=== PATIENT | male | born 1965 | race Caucasian/White ===

== ENCOUNTER 2018-03-20 13:39 | Outpatient (CLI) | payer BC ==
[~2018-03-20] VITALS: Ht 167.6 cm; Wt 97.5 kg
[~2018-03-20 13:39] MED LIST: DOXY100C2 PO; NAPR500T8 PO
== END 2018-03-20 13:49 | disposition home or self-care (01) ==
LOC: PREOP 13:39
PROVIDERS: ATTEND Surgery
DX: Z01.818 Encounter for other preprocedural examination (principal)

== ENCOUNTER 2018-03-26 07:29 | Day surgery (SDC) | payer BC ==
[~2018-03-26] VITALS: Ht 167.6 cm; Wt 97.5 kg
[2018-03-26] MEDS ORDERED: NS IV 500 ML 500 ML ONE (07:39)
[2018-03-26 07:51] VITALS: BP 121/80
[2018-03-26] MEDS ORDERED: NS IV 500 ML 500 ML IV PRN (07:54)
[2018-03-26] MEDS ORDERED: MIDAZOLAM 2 MG/2 ML (VERSED) VIAL IVP ONE (08:00)
[2018-03-26] MEDS ORDERED: fentaNYL INJECTION 100 MCG/2 ML AMP IVP ONE (08:00)
[2018-03-26] MEDS ORDERED: MIDAZOLAM 2 MG/2 ML (VERSED) VIAL ONE ×4 (08:45)
[2018-03-26] MEDS ORDERED: fentaNYL INJECTION 100 MCG/2 ML AMP ONE (08:45)
--- NOTE | 2018-03-26 08:46 | History & Physicial ---
History of Present Illness History of Present Illness Reason for visit/HPI to undergo screening colonoscopy. No family history of colon cancer or polyps. Date of Admission 03/26/18 Date Seen by a Provider: Mar 26, 2018 Time Seen by a Provider: 08:44 I consulted on this patient on 03/26/18 08:44 Attending Physician Rebecca Donato MD Admitting Physician Cristian Griffith MD Consult Allergies and Home Medications Allergies Coded Allergies: Cephalexin (Unverified Allergy, Intermediate, RASH, 10/14/11) Codeine (Unverified Allergy, Mild, 02/27/09) Penicillins (Unverified Allergy, Mild, RASH,SOB, 02/27/09) morphine (Unverified Allergy, EDEMA, 10/14/11) Home Medications Naproxen 500 Mg Tablet.dr, 500 MG PO BID, (Reported) Patient Home Medication List Home Medication List Reviewed: Yes Past Pgfgcyt-Lylqol-Bckuiu Hx Patient Social History Marrital Status: Employed/Student: employed Alcohol Use: Denies Use Recreational Drug Use: No Smoking Status: Never a Smoker Recent Foreign Travel: No Contact w/other who traveled: No Recent Hopitalizations: No Recent Infectious Disease Expo: No Immunizations Up To Date Date of Influenza Vaccine: Feb 05, 2018 Seasonal Allergies Seasonal Allergies: Yes Surgeries No Respiratory No Cardiovascular No Neurological No Reproductive System Hx Reproductive Disorders: No Sexually Transmitted Disease: No Gastrointestinal No Musculoskeletal Yes Arthritis Endocrine History of Endocrine Disorders: No Review of Systems Constitutional: no symptoms reported EENTM: no symptoms reported Respiratory: no symptoms reported Cardiovascular: no symptoms reported Gastrointestinal: no symptoms reported Genitourinary: no symptoms reported Musculoskeletal: joint pain Skin: no symptoms reported Psychiatric/Neurological: No Symptoms Reported Physical Exam Vital Signs Vital Signs - First Documented 03/26/18 07:51 Temp 97.7 Pulse 60 Resp 16 B/P (MAP) 121/80 (94) Pulse Ox 95 O2 Delivery Room Air Capillary Refill : Height, Weight, BMI Height: 5'6.00" Weight: 215lbs. 0.0oz. 97.595273qy; 34.7 BMI Method:Stated General Appearance: No Apparent Distress Neck: Normal Inspection Respiratory: Lungs Clear Cardiovascular: Regular Rate, Rhythm Gastrointestinal: Non Tender, Soft Rectal: Deferred Extremity: Normal Inspection Neurologic/Psychiatric: Alert, Oriented x3 Skin: Warm/Dry Assessment/Plan Assessment and Plan gentleman to undergo screening colonoscopy. Discussed in detail. Admission Diagnosis Admission Status: Other (Outpt Proc) REBECCA DONATO MD Mar 26, 2018 08:46
--- NOTE | 2018-03-26 08:46 | Conscious Sedation/ASA ---
Conscious Sedation Pre-Proced Time 08:46 ASA Score 2 For ASA 3 and 4: Consider anesthesia and medical clearance. Also, for patients with a history of failed moderate sedation consider anesthesia. Airway Lungs Heart ASA score ASA 1: a normal healthy patient ASA 2: a patient with a mild systemic disease (mid diabetes, controlled hypertension, obesity ASA 3: a patient with a severe systemic disease that limits activity (angina , COPD, prior Myocardial infarction) ASA 4: a patient with an incapacitating disease that is a constant threat to life (CHF, renal failure) ASA 5: a moribund patient not expected to survive 24 hrs. (ruptured aneurysm) ASA 6: a declared brain patient whose organs are being harvested. For emergent operations, add the letter E after the classification Mallampati Classification Grade 2 Sedation Plan Discussed options with patient/fam The patient is an appropriate candidate to undergo the planned procedure, sedation, and anesthesia. The patient immediately re-assessed prior to indication. REBECCA DONATO MD Mar 26, 2018 08:46
--- NOTE | 2018-03-26 09:15 | Endo Procedure Record ---
Endo Procedure Report Date of Procedure Last Colonoscopy: No Mar 26, 2018 Surgeon (s) REBECCA DONATO MD Post Procedure/Op Diagnosis sigmoid diverticulosis Procedure Performed colonoscopy to cecum Description of Procedure Anesthesia Type: Conscious Sedation Specimen(s) collected/removed none Description of the Procedure Indication for the procedure: This gentleman came in for screening colonoscopy. He denied any relevant family history. Informed consent was obtained after reviewing the procedure in detail. Description of procedure: He was placed in left lateral decubitus position and his vital signs were monitored. Conscious sedation was achieved using Versed and fentanyl. Digital rectal examination was unremarkable. The colonoscope was then introduced into the rectum and advanced all the way up to the cecum. It was then pulled back and the mucosa examined in a systematic fashion. Findings: Sigmoid diverticulosis without any inflammation. He tolerated the procedure well and was taken back to the nursing area in a stable condition. Impression: Screening colonoscopy. No polyps. No family history. Recommend repeating in 10 years. Copy Copies To 1: SHANKAR OSWALD MD, XAVIER M MD Mar 26, 2018 09:15
--- NOTE | 2018-03-26 09:16 | Discharge Inst-Simple/Standard ---
Discharge Inst-Standard Discharge Medications New, Converted or Re-Newed RX: Other Patient Instructions/Follow Up Plan of Care/Instructions/FU: repeat colonoscopy in 10 years Activity as Tolerated: Yes Discharge Diet: No Restrictions REBECCA DONATO MD Mar 26, 2018 09:16
[2018-03-26 09:40] VITALS: BP 101/64
[2018-03-26 10:10] VITALS: BP 109/73
[2018-03-26 10:28] VITALS: BP 109/73
== END 2018-03-26 10:28 | disposition home or self-care (01) ==
LOC: ENDO 07:29
PROVIDERS: ATTEND Surgery
DX: Z12.11 Encounter for screening for malignant neoplasm of colon (principal); K57.30 Diverticulosis of large intestine without perforation or abscess without bleeding; Z79.899 Other long term (current) drug therapy; Z88.5 Allergy status to narcotic agent; Z88.1 Allergy status to other antibiotic agents; Z88.0 Allergy status to penicillin

== ENCOUNTER 2019-08-14 20:12 | Emergency (ER) | payer BC ==
[~2019-08-14] VITALS: Ht 167 cm; Wt 92.7 kg
[2019-08-14] MEDS ORDERED: LIDOCAINE 1% INJ 20 ML 20 ML VIAL INJ ONE (20:30)
[2019-08-14] MEDS ORDERED: TETANUS,DIPTH,PERTUSS P/F (BOOSTRIX) 0.5 ML VIAL IM ONE (20:30)
[2019-08-14] MEDS ORDERED: metroNIDAZOLE 500 MG (FLAGYL) TAB PO ONE (20:30)
[2019-08-14] MEDS ORDERED: DOXYCYCLINE 100 MG (VIBRAMYCIN) TABLET PO SCH (20:30)
[2019-08-14] MEDS ORDERED: RX-HYDROCODONE/APAP 5/325 MG #4 TAB PK PO PRN (20:30)
--- NOTE | 2019-08-14 20:34 | ED Upper Extremity ---
General Chief Complaint: Bite-Animal/Human/Insect Stated Complaint: LT HAND LACERATION Nursing Triage Note: Pt to ED with bite to L wrist from family dog. Pt uncertain of last tetanus shot. Nursing Sepsis Screen: No Definite Risk Source: patient Exam Limitations: no limitations History of Present Illness Date Seen by Provider: Aug 14, 2019 Time Seen by Provider: 20:32 Initial Comments Dogbite left wrist just prior to arrival. This was a family dog that is up-to-date on rabies vaccine. He himself is not up-to-date on tetanus vaccine however. Onset: this evening Severity: moderate Pain/Injury Location: left wrist Method of Injury: unknown Modifying Factors: Worse With Movement Allergies and Home Medications Allergies Coded Allergies: Cephalexin (Unverified Allergy, Intermediate, RASH, 10/14/11) Codeine (Unverified Allergy, Mild, 02/27/09) Penicillins (Unverified Allergy, Mild, RASH,SOB, 02/27/09) morphine (Unverified Allergy, EDEMA, 10/14/11) Home Medications Doxycycline Hyclate 100 Mg Tablet, 100 MG PO BID Prescribed by: HOSSEIN NELSON on 08/14/192038 Metronidazole 500 Mg Tablet, 500 MG PO BID Prescribed by: HOSSEIN NELSON on 08/14/192038 Naproxen 500 Mg Tablet.dr, 500 MG PO BID, (Reported) Patient Home Medication List Home Medication List Reviewed: Yes Review of Systems Constitutional: see HPI EENTM: see HPI Respiratory: no symptoms reported Cardiovascular: no symptoms reported Genitourinary: no symptoms reported Musculoskeletal: no symptoms reported Skin: no symptoms reported Psychiatric/Neurological: No Symptoms Reported Past Xrgoesh-Hxoodt-Ghfoik Hx Patient Social History Alcohol Use: Occasionally Uses Recreational Drug Use: No 2nd Hand Smoke Exposure: No Recent Foreign Travel: No Contact w/Someone Who Travel: No Recent Infectious Disease Expo: No Recent Hopitalizations: No Immunizations Up To Date Tetanus Booster (TDap): Unknown Date of Influenza Vaccine: Feb 05, 2018 Seasonal Allergies Seasonal Allergies: Yes Past Medical History Surgeries: Yes Respiratory: No Cardiac: No Neurological: No Reproductive Disorders: No Sexually Transmitted Disease: No Gastrointestinal: No Musculoskeletal: No Arthritis Endocrine: No Cancer: No Psychosocial: No Integumentary: No Blood Disorders: No Physical Exam Vital Signs Vital Signs - First Documented 08/14/19 20:15 Temp 36.9 Pulse 75 Resp 15 B/P (MAP) 129/84 (99) Pulse Ox 95 O2 Delivery Room Air Capillary Refill : Less Than 3 Seconds Height, Weight, BMI Height: 5'6.00" Weight: 215lbs. 0.0oz. 97.747256gc; 33.00 BMI Method:Stated General Appearance: WD/WN, no apparent distress HEENT: PERRL/EOMI Respiratory: no respiratory distress, no accessory muscle use Shoulder: normal inspection, non-tender Elbow/Forearm: normal inspection, non-tender Wrist: Yes pain (2 cm laceration to the radial side left wrist down the subcutaneous tissue. Normal extension and thumb. Normal sensation distally.), Yes soft tissue tenderness (a few small puncture wounds to the dorsal aspect of the wrist as well.) Hand: Left Neurologic/Psychiatric: alert, normal mood/affect, oriented x 3 Skin: normal color, warm/dry Procedures/Interventions Wound Length (cm): 2.5 Wound's Depth, Shape: linear Wound Explored: clean Irrigated w/ Saline (ccs): 150 Anesthesia: 1% Lidocaine Suture: Prolene Suture Size: 4-0 Number of Sutures: 3 Layer Closure?: 1 Number Deep Layer Sutures: 0 Progress/Results/Core Measures Results/Orders My Orders Orders - HOSSEIN NELSON APRN Dipht,Pertuss(Acell),Tet Adult (Boostrix (08/14/19 20:30) Lidocaine 1% Inj 20 Ml (Xylocaine 1% Inj (08/14/19 20:30) Doxycycline Hyclate Tablet (Vibramycin T (08/14/19 20:30) Metronidazole Tablet (Flagyl Tablet) (08/14/19 20:30) Rx-Hydrocodone/Apap 5-325 Mg (Rx-Vicodin (08/14/19 20:30) Wrist, Left, 3 Views Or More (08/14/19 20:27) Medications Given in ED Current Medications Medications Dose Ordered Sig/Arturo Route Start Time Stop Time Status Last Admin Dose Admin Acetaminophen/ Hydrocodone Bitart 1 ea Q4H PRN PO 08/14/19 20:30 08/14/19 20:39 1 EA Diphtheria/ Tetanus/Acell Pertussis 0.5 ml ONCE ONCE IM 08/14/19 20:30 08/14/19 20:31 DC 08/14/19 20:41 0.5 ML Lidocaine HCl 2 ml ONCE ONCE INJ 08/14/19 20:30 08/14/19 20:31 DC 08/14/19 20:42 2 ML Metronidazole 500 mg ONCE ONCE PO 08/14/19 20:30 08/14/19 20:31 DC 08/14/19 20:39 500 MG Vital Signs/I&O 08/14/19 20:15 Temp 36.9 Pulse 75 Resp 15 B/P (MAP) 129/84 (99) Pulse Ox 95 O2 Delivery Room Air Blood Pressure Mean: 99 Departure Impression Primary Impression: Dog bite Qualified Codes: W54.0XXA - Bitten by dog, initial encounter Disposition: HOME, SELF-CARE Condition: Stable Departure-Patient Inst. Decision time for Depature: 20:34 Referrals: SHANKAR OSWALD MD (PCP/Family) Primary Care Physician Patient Instructions: Animal Bites (DC) Add. Discharge Instructions: 1. You can wash the wound and let water run over it gently starting tomorrow. Return to ER for any sign of infection such as redness or swelling. Antibiotics as directed this is very important. Pain medication as needed. Return to ER to have the stitches removed in about 10 days. All discharge instructions reviewed with patient and/or family. Voiced understanding. Scripts Metronidazole (Metronidazole) 500 Mg Tablet 500 MG PO BID, #14 TAB 0 Refills Prov: HOSSEIN NELSON APRN 08/14/19 Doxycycline Hyclate (Doxycycline Hyclate) 100 Mg Tablet 100 MG PO BID, #14 TAB 0 Refills Prov: HOSSEIN NELSON APRN 08/14/19 HOSSEIN NELSON APRN Aug 14, 2019 20:34
[2019-08-14] MEDS ORDERED: DOXY100T2 PO (20:39)
[2019-08-14] MEDS ORDERED: METR-145 PO (20:39)
--- NOTE | 2019-08-14 20:53 | Diagnostic Imaging Report ---
INDICATION: Dog bite with pain to left wrist. EXAMINATION: Three views. FINDINGS: Radiocarpal joint is in good alignment. Articulating surfaces are smooth. There is noted cystic change within the midportion of the navicular. No cortical fracture is demonstrated. No radiopaque foreign body. IMPRESSION: No acute abnormality is demonstrated. Dictated by: Dictated on workstation # [id number]
[2019-08-14 21:00] VITALS: BP 129/84
== END 2019-08-14 21:01 | disposition home or self-care (01) ==
LOC: EDUNIT# 20:12 → ER 20:14
DX: S61.512A Laceration without foreign body of left wrist, initial encounter (principal); S61.532A Puncture wound without foreign body of left wrist, initial encounter; Z88.0 Allergy status to penicillin; Z88.5 Allergy status to narcotic agent; Z88.1 Allergy status to other antibiotic agents; Z23 Encounter for immunization; W54.0XXA Bitten by dog, initial encounter
CPT/HCPCS: 12002; 73110; 90715

== ENCOUNTER 2019-08-23 16:54 | Emergency (ER) | payer BC ==
[~2019-08-23] VITALS: Ht 167.7 cm; Wt 96.6 kg
[~2019-08-23 16:54] MED LIST changes: +DOXY100T2 PO; +METR-145 PO
--- OUTSIDE RECORDS SUMMARY | 2019-08-23 16:58 | XMS REPORT | Continuity of Care Document ---
Author Organization Unknown Address Unknown Phone Unavailable Allergies Active Description Code Type Severity Reaction Onset Reported/Identified Relationship to Patient Clinical Status Yes codeine [id number] Drug Allergy Mild N/A 02/27/2009 Yes Penicillins [id number] Drug Aller gy Mild RASH,SOB 02/27/2009 Yes cephalexin [id number] Drug Allerg y Moderate RASH 10/14/2011 Yes morphine [id number] Drug Allergy Unknown EDEMA 10/14/2011 Medications There is no data. 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 10/17/2011 Ot 276.1 HYPO SMOLALITY 10/17/2011 Ot 287.5 THRO MBOCYTOPENIA NOS 10/17/2011 Ot 790.5 ABN SERUM ENZY LEVEL NEC 10/17/2011 Ot 995.91 SEPSIS 03/20/2018 KINGA MAR, REBECCA Krishna Ot Z01.818 ENCOUNTER FOR OTHER PREPROCEDURAL EXAMIN 03/20/2018 REBECCA DONATO MD Ot Z01.818 ENCOUNTER FOR OTHER PREPROCEDURAL EXAMIN 03/20/2018 REBECCA DONATO MD Ot Z01.818 ENCOUNTER FOR OTHER PREPROCEDURAL EXAMIN 03/26/2018 REBECCA DONATO MD Ot K57.30 DVRTCLOS OF LG INT W/O PERFORATION OR AB 03/26/2018 REBECCA DONATO MD Ot Z12.11 ENCOUNTER FOR SCREENING FOR MALIGNANT NE 03/26/2018 REBECCA DONATO MD Ot Z79.899 OTHER MAINTENANCE SUPERINTENDENT (CURRENT) DRUG THERAPY 03/26/2018 KINGA MAR, REBECCA Krishna Ot Z88.0 ALLERGY STATUS TO PENICILLIN 03/26/2018 REBECCA DONATO MD Ot Z88.1 ALLERGY STATUS TO OTHER ANTIBIOTIC AGENT 03/26/2018 REBECCA DONATO MD Ot Z88.5 ALLERGY STATUS TO NARCOTIC AGENT STATUS 03/26/2018 REBECCA DONATO MD Ot K57.30 DVRTCLOS OF LG INT W/O PERFORATION OR AB 03/26/2018 REBECCA DONATO MD Ot Z12.11 ENCOUNTER FOR SCREENING FOR MALIGNANT NE 03/26/2018 REBECCA DONATO MD Ot Z79.899 OTHER MAINTENANCE SUPERINTENDENT (CURRENT) DRUG THERAPY 03/26/2018 REBECCA DONATO MD Ot Z88.0 ALLERGY STATUS TO PENICILLIN 03/26/2018 REBECCA DONATO MD Ot Z88.1 ALLERGY STATUS TO OTHER ANTIBIOTIC AGENT 03/26/2018 REBECCA DONATO MD Ot Z88.5 ALLERGY STATUS TO NARCOTIC AGENT STATUS 03/27/2018 REBECCA DONATO MD Ot K57.30 DVRTCLOS OF LG INT W/O PERFORATION OR AB 03/27/2018 REBECCA DONATO MD Ot Z12.11 ENCOUNTER FOR SCREENING FOR MALIGNANT NE 03/27/2018 REBECCA DONATO MD Ot Z79.899 OTHER MAINTENANCE SUPERINTENDENT (CURRENT) DRUG THERAPY 03/27/2018 REBECCA DONATO MD Ot Z88.0 ALLERGY STATUS TO PENICILLIN 03/27/2018 REBECCA DONATO MD Ot Z88.1 ALLERGY STATUS TO OTHER ANTIBIOTIC AGENT 03/27/2018 REBECCA DONATO MD Ot Z88.5 ALLERGY STATUS TO NARCOTIC AGENT STATUS 03/27/2018 REBECCA DONATO MD Ot K57.30 DVRTCLOS OF LG INT W/O PERFORATION OR AB 03/27/2018 REBECCA DONATO MD Ot Z12.11 ENCOUNTER FOR SCREENING FOR MALIGNANT NE 03/27/2018 REBECCA DONATO MD Ot Z79.899 OTHER [facility] (CURRENT) DRUG THERAPY 03/27/2018 REBECCA DONATO MD Ot Z88.0 ALLERGY STATUS TO PENICILLIN 03/27/2018 REBECCA DONATO MD Ot Z88.1 ALLERGY STATUS TO OTHER ANTIBIOTIC AGENT 03/27/2018 REBECCA DONATO MD Ot Z88.5 ALLERGY STATUS TO NARCOTIC AGENT STATUS 04/01/2018 REBECCA DONATO MD Ot K57.30 DVRTCLOS OF LG INT W/O PERFORATION OR AB 04/01/2018 REBECCA DONATO MD Ot Z12.11 ENCOUNTER FOR SCREENING FOR MALIGNANT NE 04/01/2018 REBECCA DONATO MD Ot Z79.899 OTHER MAINTENANCE SUPERINTENDENT (CURRENT) DRUG THERAPY 04/01/2018 REBECCA DONATO MD Ot Z88.0 ALLERGY STATUS TO PENICILLIN 04/01/2018 REBECCA DONATO MD Ot Z88.1 ALLERGY STATUS TO OTHER ANTIBIOTIC AGENT 04/01/2018 REBECCA DONATO MD Ot Z88.5 ALLERGY STATUS TO NARCOTIC AGENT STATUS 08/16/2019 HOSSEIN NELSON APRN Ot S61.512A LACERATION WITHOUT FOREIGN BODY OF LEFT 08/16/2019 HOSSEIN NELSON APRN Ot S61.532A PUNCTURE WOUND W/O FOREIGN BODY OF LEFT 08/16/2019 HOSSEIN NELSON APRN Ot W54.0XXA BITTEN BY DOG, INITIAL ENCOUNTER 08/16/2019 HOSSEIN NELSON APRN Ot Z23 ENCOUNTER FOR IMMUNIZATION 08/16/2019 HOSSEIN NELSON APRN Ot Z88 .0 ALLERGY STATUS TO PENICILLIN 08/16/2019 HOSSEIN NELSON APRN Ot Z88 .1 ALLERGY STATUS TO OTHER ANTIBIOTIC AGENT 08/16/2019 HOSSEIN NELSON APRN Ot Z88 .5 ALLERGY STATUS TO NARCOTIC AGENT STATUS Procedures There is no data. Results There is no data. Encounters ACCT No. Visit Date/Time Discharge Status Pt. Type Provider Facility Loc./Unit Complaint [id number] 08/14/2019 20:14:00 020 21:01:00 DIS Outpatient HOSSEIN NELSON APRN [facility] ER LT HAND LACERATION [id number] 03/26/2018 07:29:00 018 23:59:59 CLS Outpatient REBECCA DONATO MD [facility] ENDO SCREENING [id number] 03/20/2018 13:39:00 018 13:49:00 DIS Outpatient REBECCA DONATO MD [facility] PREOP COLONOSCOPY [id number] 08/23/2019 16:55:[address] Emergency LE ALMEIDA MD [facility] ER SUTURE REMOVAL [id number] 10/14/2011 20:00:00 Document Registration
[2019-08-23 17:05] VITALS: BP 108/77
== END 2019-08-23 17:07 | disposition home or self-care (01) ==
LOC: EDUNIT# 16:54 → ER 16:55
DX: S61.412A Laceration without foreign body of left hand, initial encounter (principal); X58.XXXD Exposure to other specified factors, subsequent encounter